=== PATIENT | female | born 1995 | race Asian ===

== ENCOUNTER 2022-09-24 17:06 | Emergency (ER) | payer MEDICAID ==
[~2022-09-24] VITALS: Ht 172.7 cm; Wt 66.2 kg
[2022-09-24 17:09] VITALS: BP 122/70
--- NOTE | 2022-09-24 17:13 | NUR ---
pt ambulatory to [facility]
--- NOTE | 2022-09-24 17:14 | NUR ---
wound to L posterior wrist irrigated.
--- NOTE | 2022-09-24 17:53 | NUR ---
Patient ambulated to bed 8.
[2022-09-24] MEDS ORDERED: ACETAMINOPHEN 325 MG TAB PO ONE (18:00)
[2022-09-24] MEDS ORDERED: LIDOCAINE MPF 1% 10 MG/ML VIAL INJ ONE (18:00)
--- NOTE | 2022-09-24 18:00 | NUR ---
non adherent x 1 applied to l posterior wrist. + cms
[2022-09-24] MEDS ORDERED: BACI-416 TP (18:34)
[2022-09-24] MEDS ORDERED: BACITRACIN OINT 500 UNITS/GM PKT TP ONE (18:35)
--- NOTE | 2022-09-24 18:36 | NUR ---
The patient's care was reviewed and supervised by [facility], RN. The patient's care was reviewed and supervised by [facility], RN.
[2022-09-24 18:54] VITALS: BP 119/78
--- NOTE | 2022-09-24 18:54 | NUR ---
Patient discharged with v/s stable. Written and verbal after care instructions given. Patient alert, oriented and verbalized understanding of instructions. Ambulatory with . All questions addressed prior to discharge. ID band removed. Patient advised to follow up with PMD. Rx of Bacitracin given. Opportunity to ask questions provided and answered.
--- NOTE | 2022-09-24 18:56 | NUR ---
The patient's care was reviewed and supervised by Belle Blake RN, RN.
== END 2022-09-24 18:54 | disposition home or self-care (01) ==
LOC: MED 17:06
DX: S61.512A Laceration without foreign body of left wrist, initial encounter (principal); Z79.899 Other long term (current) drug therapy; W26.0XXA Contact with knife, initial encounter; Y93.89 Activity, other specified; Y92.89 Other specified places as the place of occurrence of the external cause; Y99.8 Other external cause status
CPT/HCPCS: 12001; 90471; 90715; 99283; J2001

== ENCOUNTER 2022-10-02 17:47 | Emergency (ER) | payer MEDICAID ==
[~2022-10-02] VITALS: Ht 172.7 cm; Wt 67.8 kg
[~2022-10-02 17:47] MED LIST: BACI-416 TP
[2022-10-02 17:52] VITALS: BP 134/76
[2022-10-02 18:09] VITALS: BP 134/76
--- NOTE | 2022-10-02 18:09 | NUR ---
Patient discharged with v/s stable. Written and verbal after care instructions given and explained. Patient verbalized understanding. Ambulatory with steady gait. All questions addressed prior to discharge. Advised to follow up with PMD.
== END 2022-10-02 18:09 | disposition home or self-care (01) ==
LOC: MED 17:47
DX: S61.512D Laceration without foreign body of left wrist, subsequent encounter (principal); Z79.899 Other long term (current) drug therapy; X58.XXXD Exposure to other specified factors, subsequent encounter
CPT/HCPCS: 99281